=== PATIENT | female | born 1980 ===

== ENCOUNTER 2021-07-08 22:53 | Inpatient (IN) | payer MEDICAID ==
[~2021-07-08] VITALS: Ht 167.6 cm; Wt 93.8 kg
--- NOTE | 2021-07-08 23:07 | NUR ---
ELMER from [facility] for ETOH, GI bleed, AMS, and emesis. Patient is poor historian, denies any medical history, denies drug use, denies tobacco use, endorces ETOH use. EMS reports patient drinks 1/2 to 1 gallon of ETOH/day. Patient is AOx4. Sitter at bedside.
--- NOTE | 2021-07-08 23:34 | NUR ---
Patient given water. Sitter remains at bedside.
[2021-07-09] MEDS ORDERED: ONDANSETRON 2MG/ML, 2ML IVPush ONE
[2021-07-09] MEDS ORDERED: LORazepam 2 MG/ML, 1ML IVPush PRN
[2021-07-09 00:16] LABS: BASOPHILS % (AUTO) 1 % (0-1); EOSINOPHILS % (AUTO) 0 % (1-7); LYMPHOCYTES % (AUTO) 12 % (22-44); MEAN CORPUSCULAR HEMOGLOBIN 37.1 pg (27.0-34.8); MEAN CORPUSCULAR HGB CONC 33.8 g/dL (32.4-35.8); MEAN PLATELET VOLUME 8.3 fL (7.4-10.4); MONOCYTES % (AUTO) 5 % (2-9); NEUTROPHILS % (AUTO) 82 % (42-75); PLATELET COUNT 211 x10^3/uL (130-400); RED BLOOD COUNT 3.28 x10^6/uL (3.82-5.3); RED CELL DISTRIBUTION WIDTH 19.6 % (9.6-15.2)
[2021-07-09] MEDS ORDERED: LORazepam 2 MG/ML, 1ML ONE ×4 (00:33→11:04)
--- NOTE | 2021-07-09 00:35 | NUR ---
TASK RN: PT MEDICATED PER DEC, AWAITING MEDS FROM PHARM
[2021-07-09] MEDS ORDERED: ONDANSETRON 2MG/ML, 2ML ONE (00:37)
[2021-07-09] MEDS ORDERED: THIAMINE 100 MG in SODIUM CHLORIDE 0.9% 50 ML IVPB ONE (01:00)
[2021-07-09] MEDS ORDERED: OCTREOTIDE 500 MCG in SODIUM CHLORIDE 0.9% 99 ML IV PRN (01:00)
[2021-07-09] MEDS ORDERED: PANTOPRAZOLE 80 MG in SODIUM CHLORIDE 0.9% 50 ML IVPB ONE (01:00)
[2021-07-09] MEDS ORDERED: PANTOPRAZOLE 80 MG in SODIUM CHLORIDE 0.9% 100 ML IV SCH (01:00)
[2021-07-09 01:04] LABS: ANISOCYTOSIS 1+
[2021-07-09 01:05] LABS: <PLATELET ESTIMATE> ADEQUATE
[2021-07-09 01:06] LABS: <PLT MORPHOLOGY> NORMAL PLT MORPH
[2021-07-09] MEDS ORDERED: FOLIC ACID 5 MG/ML IM ONE (02:00)
[2021-07-09] MEDS ORDERED: ONDANSETRON 2MG/ML, 2ML IV PRN (02:00)
[2021-07-09] MEDS ORDERED: POTASSIUM CHLORIDE 40 MEQ in SODIUM CHLORIDE 0.9% 500 ML IV ONE (02:00)
[2021-07-09] MEDS ORDERED: LORazepam 2 MG/ML, 1ML IV PRN ×4 (02:00)
[2021-07-09] MEDS ORDERED: LACTATED RINGERS 1,000 ML IV SCH (02:00)
[2021-07-09] MEDS: DIAZEPAM 5 MG TABLET PO SCH ×2 (02:00→08:00)
[2021-07-09] MEDS ORDERED: DIAZEPAM 10 MG TABLET PO SCH (02:00)
[2021-07-09] MEDS ORDERED: PHYTONADIONE 10 MG/ML, 1ML SQ ONE (02:00)
[2021-07-09] MEDS: PANTOPRAZOLE 80 MG in SODIUM CHLORIDE 0.9% 100 ML IV SCH ×3 (02:00→20:51)
--- NOTE | 2021-07-09 02:31 | NUR ---
Patient resting on gurney, NAD at this time, denies any pain/discomfort. Sitter at bedside.
--- NOTE | 2021-07-09 03:53 | NUR ---
Patient sitting up on guALPHONSE segovia at this time, patient is calm, sitter at bedside.
[2021-07-09] MEDS ORDERED: PHYTONADIONE 10 MG/ML, 1ML ONE (04:00)
[2021-07-09] MEDS ORDERED: DIAZEPAM 5 MG TABLET ONE (04:00)
[2021-07-09] MEDS: NOREPINEPHRINE 8 MG in SODIUM CHLORIDE 0.9% 242 ML IV PRN ×2 (05:24→19:19)
--- NOTE | 2021-07-09 05:24 | NUR ---
LEVO GTT STARTED AT THIS TIME. PER ERP SET UP FOR CENTRAL LINE INSERTION
[2021-07-09] MEDS ORDERED: FOLIC ACID 1 MG TABLET PO ONE (05:30)
[2021-07-09] MEDS ORDERED: FENTANYL PF 100 MCG/2ML ONE ×2 (05:38→05:51)
[2021-07-09] MEDS ORDERED: MIDAZOLAM 1 MG/ML, 2ML ONE (05:54)
[2021-07-09] MEDS ORDERED: FENTANYL PF 100 MCG/2ML IVPush ONE ×2 (06:00→06:30)
--- NOTE | 2021-07-09 06:15 | NUR ---
DR OCONNOR AT BEDSIDE FOR CENTRAL LINE PLACEMENT. PT MEDICATED PER VERBAL ORDER WITH FENTANYL AN VERSED
[2021-07-09] MEDS ORDERED: MIDAZOLAM 1 MG/ML, 5ML IVPush ONE (06:30)
[2021-07-09] MEDS ORDERED: MIDAZOLAM 1 MG/ML, 2ML IVPush ONE (06:30)
--- NOTE | 2021-07-09 06:54 | NUR ---
PT MOVED TO ROOM 2 FOR SITTER AVAILABILITY
--- NOTE | 2021-07-09 07:02 | NUR ---
PT TRANSFERRED TO ROOM 2, PLACED ON ALL MONITORS, SITTER AT DOOR
[2021-07-09] MEDS: LACTULOSE 20 GM/30 ML UDC PO SCH ×2 (09:00→21:18)
[2021-07-09] MEDS ORDERED: MULTIVITAMINS/MINERALS TABLET PO SCH (09:00)
[2021-07-09] MEDS: LORazepam 2 MG/ML, 1ML IV PRN ×2 (09:31→11:07)
[2021-07-09] MEDS: OCTREOTIDE 500 MCG in SODIUM CHLORIDE 0.9% 99 ML IV SCH ×2 (10:57→20:51)
--- NOTE | 2021-07-09 12:30 | NUR ---
DR. MCDONALD CALLED FOR BEDSIDE ASSESSMENT. RONCHOROUS BREATH SOUNDS WITH RR IN THE 30S, BUT AGITATED. 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
--- NOTE | 2021-07-09 12:35 | NUR ---
DR. MCDONALD TO BEDSIDE-PLAN TO INTUBATE. MOVED TO TRAUMA ROOM 1
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
[2021-07-09] MEDS: PROPOFOL 100 ML IV PRN ×2 (13:04→15:58)
--- NOTE | 2021-07-09 13:30 | NUR ---
CXR AT BEDSIDE POLYSTYRENE BEAD MOLDER SUCTIONING COPIOUS AMOUNT OF BLOOD FROM MOUTH, PHARNYX AND ETT
[2021-07-09] MEDS: LACTATED RINGERS 1,000 ML IV SCH ×2 (13:44→20:50)
[2021-07-09] MEDS ORDERED: ETOMIDATE 20 MG/10 ML IVPush ONE ×2 (14:00)
[2021-07-09] MEDS ORDERED: SUCCINYLCHOLINE 20 MG/ML, 10ML IVPush ONE (14:00)
--- NOTE | 2021-07-09 14:15 | NUR ---
TRANSFFERED AT 1414
[2021-07-09] MEDS ORDERED: SODIUM BICARB 8.4%, 50ML SYRINGE IVPush ONE (15:00)
[2021-07-09] MEDS ORDERED: LACTATED RINGERS 1,000 ML IVBOLUS ONE (15:00)
[2021-07-09 15:31] LABS: AMPHETAMINE SCREEN, URINE Negative (Negative); BARBITURATE SCREEN, URINE Negative (Negative); BENZODIAZEPINE SCREEN, URINE Positive (Negative); CANNABINOID SCREEN, URINE Negative (Negative); COCAINE SCREEN, URINE Negative (Negative); METHADONE SCREEN, URINE Negative (Negative); OPIATE SCREEN, URINE Negative (Negative)
[2021-07-09 15:48] LABS: MICROSCOPIC INDICATED
[2021-07-09 15:50] LABS: ALANINE AMINOTRANSFERASE 133 U/L (12-78); ALBUMIN 1.5 g/dL (3.4-5.0); ANION GAP 28 mmol/L (5-15); CALCIUM 7.2 mg/dL (8.5-10.1); CHLORIDE 99 mmol/L (98-107)
[2021-07-09] MEDS ORDERED: SENNA/DOCUSATE TABLET NG PRN (16:00)
[2021-07-09] MEDS ORDERED: BISACODYL 10 MG SUPP PR PRN (16:00)
[2021-07-09] MEDS ORDERED: LIDOCAINE-MPF 1%, 2ML ENDO PRN (16:00)
[2021-07-09] MEDS ORDERED: GLUCAGON 1 MG IM PRN (16:00)
[2021-07-09] MEDS ORDERED: SENNA 176 MG/5 ML ORAL SOL NG PRN (16:00)
[2021-07-09] MEDS ORDERED: PHARMACY MAY ADJ FOR RENAL FX MC SCH (16:00)
[2021-07-09 16:17] LABS: ALKALINE PHOSPHATASE 293 U/L (45-117)
[2021-07-09 16:29] LABS: TOTAL PROTEIN 5.6 g/dL (6.4-8.2)
[2021-07-09 16:31] LABS: BILIRUBIN,TOTAL 16.6 mg/dL (0.2-1.0)
[2021-07-09] MEDS: AMPICILLIN/SULBACTAM 3 GM in SODIUM CHLORIDE 0.9% 100 ML IV SCH ×2 (16:38→20:52)
[2021-07-09] MEDS: AZITHROMYCIN 500 MG in SODIUM CHLORIDE 0.9% 250 ML IV SCH (17:16)
[2021-07-09] MEDS: RIFAXIMIN 550 MG TABLET PO SCH ×2 (17:16→21:24)
[2021-07-09] MEDS: MIDAZOLAM HCL 50 MG in SODIUM CHLORIDE 0.9% 40 ML IV PRN ×2 (20:51→23:56)
[2021-07-09] MEDS: FENTANYL PF 1,000 MCG in SODIUM CHLORIDE 0.9% 80 ML IV PRN (20:52)
[2021-07-10] VITALS (8 sets, daily range): BP systolic 96–114; BP diastolic 44–54
[2021-07-10] MEDS ORDERED: DIAZEPAM 5 MG TABLET PO SCH (02:00)
[2021-07-10] MEDS: AMPICILLIN/SULBACTAM 3 GM in SODIUM CHLORIDE 0.9% 100 ML IV SCH ×3 (04:01→17:53)
[2021-07-10] MEDS: NOREPINEPHRINE 8 MG in SODIUM CHLORIDE 0.9% 242 ML IV PRN ×4 (04:02→23:58)
[2021-07-10] MEDS: PANTOPRAZOLE 80 MG in SODIUM CHLORIDE 0.9% 100 ML IV SCH ×2 (04:02→16:11)
[2021-07-10] MEDS: OCTREOTIDE 500 MCG in SODIUM CHLORIDE 0.9% 99 ML IV SCH ×2 (04:03→16:11)
[2021-07-10] MEDS: LACTATED RINGERS 1,000 ML IV SCH ×3 (05:35→23:57)
[2021-07-10 06:34] LABS: BASOPHILS % (AUTO) 1 % (0-1); EOSINOPHILS % (AUTO) 1 % (1-7); LYMPHOCYTES % (AUTO) 17 % (22-44); MEAN CORPUSCULAR HEMOGLOBIN 37.7 pg (27.0-34.8); MEAN CORPUSCULAR HGB CONC 33.5 g/dL (32.4-35.8); MEAN PLATELET VOLUME 8.4 fL (7.4-10.4); MONOCYTES % (AUTO) 2 % (2-9); NEUTROPHILS % (AUTO) 79 % (42-75); PLATELET COUNT 134 x10^3/uL (130-400); RED BLOOD COUNT 2.47 x10^6/uL (3.82-5.3); RED CELL DISTRIBUTION WIDTH 20.3 % (9.6-15.2)
[2021-07-10 06:43] LABS: INTERNATIONAL NORMALIZED RATIO 3.53 (0.93-1.1); PROTHROMBIN TIME 35.6 Seconds (9.6-11.5)
[2021-07-10 07:02] LABS: ALKALINE PHOSPHATASE 264 U/L (45-117); TOTAL PROTEIN 5.2 g/dL (6.4-8.2)
[2021-07-10 07:10] LABS: BILIRUBIN,TOTAL 17.5 mg/dL (0.2-1.0)
[2021-07-10 07:11] LABS: ALANINE AMINOTRANSFERASE 188 U/L (12-78); ANION GAP 11 mmol/L (5-15); CALCIUM 7.1 mg/dL (8.5-10.1); CHLORIDE 103 mmol/L (98-107); CREATININE 1.47 mg/dL (0.55-1.02)
[2021-07-10 07:12] LABS: ALBUMIN 1.3 g/dL (3.4-5.0)
[2021-07-10 07:30] LABS: <PLATELET ESTIMATE> ADEQUATE; <PLT MORPHOLOGY> NORMAL PLT MORPH; ANISOCYTOSIS 1+; TARGET CELLS 1+
[2021-07-10] MEDS ORDERED: THIAMINE 100 MG in DEXTROSE 5% 50 ML IVPB SCH (09:30)
[2021-07-10] MEDS: THIAMINE 200 MG in DEXTROSE 5% 50 ML IVPB SCH (09:46)
[2021-07-10] MEDS: RIFAXIMIN 550 MG TABLET PO SCH ×2 (09:46→20:14)
[2021-07-10] MEDS: LACTULOSE 20 GM/30 ML UDC PO SCH ×2 (09:46→20:14)
[2021-07-10] MEDS ORDERED: MAGNESIUM SULFATE PMX 4GM/100M 100 ML IVPB ONE (10:00)
[2021-07-10] MEDS ORDERED: POTASSIUM CHLORIDE 20 MEQ PACKET NG SCH (10:00)
[2021-07-10] MEDS: POTASSIUM CHLORIDE 20 MEQ PACKET NG SCH ×2 (10:02→16:37)
[2021-07-10] MEDS ORDERED: PHYTONADIONE 10 MG in SODIUM CHLORIDE 0.9% 50 ML IV ONE (12:30)
[2021-07-10] MEDS: FENTANYL PF 1,000 MCG in SODIUM CHLORIDE 0.9% 80 ML IV PRN (13:02)
[2021-07-10] MEDS: MIDAZOLAM HCL 50 MG in SODIUM CHLORIDE 0.9% 40 ML IV PRN ×2 (14:10→22:31)
[2021-07-10] MEDS: AZITHROMYCIN 500 MG in SODIUM CHLORIDE 0.9% 250 ML IV SCH (16:46)
[2021-07-10 19:10] LABS: ALANINE AMINOTRANSFERASE 177 U/L (12-78); ALBUMIN 1.3 g/dL (3.4-5.0); ANION GAP 6 mmol/L (5-15); CALCIUM 6.9 mg/dL (8.5-10.1); CHLORIDE 108 mmol/L (98-107); CREATININE 1.33 mg/dL (0.55-1.02)
[2021-07-10 19:26] LABS: ALKALINE PHOSPHATASE 254 U/L (45-117); TOTAL PROTEIN 5.1 g/dL (6.4-8.2)
[2021-07-10 19:43] LABS: BILIRUBIN,TOTAL 17.5 mg/dL (0.2-1.0)
[2021-07-11] VITALS (11 sets, daily range): BP systolic 97–109; BP diastolic 48–66
[2021-07-11] MEDS: OCTREOTIDE 500 MCG in SODIUM CHLORIDE 0.9% 99 ML IV SCH ×3 (01:36→21:06)
[2021-07-11] MEDS: PANTOPRAZOLE 80 MG in SODIUM CHLORIDE 0.9% 100 ML IV SCH ×3 (01:36→21:06)
[2021-07-11] MEDS: NOREPINEPHRINE 8 MG in SODIUM CHLORIDE 0.9% 242 ML IV PRN ×2 (03:51→13:33)
[2021-07-11 04:36] LABS: ALBUMIN 1.3 g/dL (3.4-5.0); ANION GAP 8 mmol/L (5-15); CALCIUM 6.6 mg/dL (8.5-10.1); CHLORIDE 109 mmol/L (98-107)
[2021-07-11 04:37] LABS: D-DIMER 3.41 ug/mlFEU (0.00-0.52); INTERNATIONAL NORMALIZED RATIO 2.1 (0.93-1.1); PROTHROMBIN TIME 21.7 Seconds (9.6-11.5)
[2021-07-11 04:56] LABS: ALANINE AMINOTRANSFERASE 170 U/L (12-78); ALKALINE PHOSPHATASE 265 U/L (45-117); CREATININE 1.33 mg/dL (0.55-1.02)
[2021-07-11 04:58] LABS: BILIRUBIN,TOTAL 18.8 mg/dL (0.2-1.0)
[2021-07-11] MEDS: AMPICILLIN/SULBACTAM 3 GM in SODIUM CHLORIDE 0.9% 100 ML IV SCH ×4 (05:40→17:41)
[2021-07-11 06:16] LABS: BASOPHILS % (AUTO) 1 % (0-1); EOSINOPHILS % (AUTO) 2 % (1-7); LYMPHOCYTES % (AUTO) 12 % (22-44); MEAN CORPUSCULAR HGB CONC 33.5 g/dL (32.4-35.8); MEAN PLATELET VOLUME 8.4 fL (7.4-10.4); MONOCYTES % (AUTO) 4 % (2-9); NEUTROPHILS % (AUTO) 81 % (42-75); PLATELET COUNT 141 x10^3/uL (130-400); RED BLOOD COUNT 2.07 x10^6/uL (3.82-5.3); RED CELL DISTRIBUTION WIDTH 20.2 % (9.6-15.2)
[2021-07-11] MEDS ORDERED: ERYTHROMYCIN 250 MG in SODIUM CHLORIDE 0.9% 100 ML IV ONE (07:30)
[2021-07-11] MEDS: FENTANYL PF 1,000 MCG in SODIUM CHLORIDE 0.9% 80 ML IV PRN (07:45)
[2021-07-11] MEDS: MIDAZOLAM HCL 50 MG in SODIUM CHLORIDE 0.9% 40 ML IV PRN ×2 (07:45→19:40)
[2021-07-11] MEDS: LACTATED RINGERS 1,000 ML IV SCH (07:50)
[2021-07-11] MEDS: LACTULOSE 20 GM/30 ML UDC PO SCH (07:50)
[2021-07-11] MEDS: RIFAXIMIN 550 MG TABLET PO SCH (07:50)
[2021-07-11] MEDS: THIAMINE 200 MG in DEXTROSE 5% 50 ML IVPB SCH (12:03)
[2021-07-11] MEDS ORDERED: SODIUM CHLORIDE 0.9% 250 ML IV SCH ×2 (12:30→13:30)
[2021-07-11] MEDS ORDERED: POTASSIUM CHLORIDE 40 MEQ in SODIUM CHLORIDE 0.9% 500 ML IV ONE (14:00)
[2021-07-11] MEDS: NOREPINEPHRINE 32 MG in SODIUM CHLORIDE 0.9% 218 ML IV PRN (17:45)
[2021-07-11 18:38] LABS: ALANINE AMINOTRANSFERASE 143 U/L (12-78); ALBUMIN 1.4 g/dL (3.4-5.0); ANION GAP 8 mmol/L (5-15); CHLORIDE 113 mmol/L (98-107); CREATININE 1.13 mg/dL (0.55-1.02)
[2021-07-11 18:45] LABS: ALKALINE PHOSPHATASE 240 U/L (45-117); TOTAL PROTEIN 5.1 g/dL (6.4-8.2)
[2021-07-12] MEDS: AMPICILLIN/SULBACTAM 3 GM in SODIUM CHLORIDE 0.9% 100 ML IV SCH ×5 (00:33→23:48)
[2021-07-12] MEDS: MIDAZOLAM HCL 50 MG in SODIUM CHLORIDE 0.9% 40 ML IV PRN ×2 (02:27→13:38)
[2021-07-12] MEDS: FENTANYL PF 1,000 MCG in SODIUM CHLORIDE 0.9% 80 ML IV PRN ×2 (02:27→22:17)
[2021-07-12 02:50] LABS: BASOPHILS % (AUTO) 2 % (0-1); EOSINOPHILS % (AUTO) 3 % (1-7); LYMPHOCYTES % (AUTO) 14 % (22-44); MEAN CORPUSCULAR HEMOGLOBIN 34.8 pg (27.0-34.8); MEAN CORPUSCULAR HGB CONC 34.2 g/dL (32.4-35.8); MEAN PLATELET VOLUME 7.6 fL (7.4-10.4); MONOCYTES % (AUTO) 5 % (2-9); NEUTROPHILS % (AUTO) 77 % (42-75); PLATELET COUNT 125 x10^3/uL (130-400); RED CELL DISTRIBUTION WIDTH 25.8 % (9.6-15.2)
[2021-07-12 03:02] LABS: ALANINE AMINOTRANSFERASE 141 U/L (12-78); ALBUMIN 1.4 g/dL (3.4-5.0); ANION GAP 6 mmol/L (5-15); CALCIUM 6.8 mg/dL (8.5-10.1); CHLORIDE 114 mmol/L (98-107); CREATININE 1.04 mg/dL (0.55-1.02)
[2021-07-12] MEDS ORDERED: PROPOFOL 10 MG/ML, 100ML IV ONE (03:04)
[2021-07-12] MEDS ORDERED: SUCCINYLCHOLINE 20 MG/ML, 10ML ONE (03:04)
[2021-07-12] MEDS ORDERED: ETOMIDATE 20 MG/10 ML ONE (03:04)
[2021-07-12 03:11] LABS: ALKALINE PHOSPHATASE 253 U/L (45-117); FREE T4 (FREE THYROXINE) 1.37 ng/dL (0.76-1.46); TOTAL PROTEIN 5.1 g/dL (6.4-8.2)
[2021-07-12 03:14] LABS: TRIGLYCERIDES 316 mg/dL (50-200)
[2021-07-12 03:16] LABS: BILIRUBIN,TOTAL 19.7 mg/dL (0.2-1.0)
[2021-07-12 03:36] LABS: INTERNATIONAL NORMALIZED RATIO 1.86 (0.93-1.1); PROTHROMBIN TIME 19.3 Seconds (9.6-11.5)
[2021-07-12 03:43] LABS: ANISOCYTOSIS 1+
[2021-07-12 03:45] LABS: <PLATELET ESTIMATE> DECREASED; <PLT MORPHOLOGY> NORMAL PLT MORPH; TARGET CELLS 1+
[2021-07-12] MEDS: PANTOPRAZOLE 80 MG in SODIUM CHLORIDE 0.9% 100 ML IV SCH ×2 (05:24→15:56)
[2021-07-12] MEDS: OCTREOTIDE 500 MCG in SODIUM CHLORIDE 0.9% 99 ML IV SCH ×2 (05:24→15:56)
[2021-07-12] MEDS: THIAMINE 200 MG in DEXTROSE 5% 50 ML IVPB SCH (08:50)
[2021-07-12] MEDS: NOREPINEPHRINE 32 MG in SODIUM CHLORIDE 0.9% 218 ML IV PRN ×2 (08:53→19:50)
[2021-07-12] MEDS ORDERED: VASOPRESSIN 20 UNIT in SODIUM CHLORIDE 0.9% 99 ML IV PRN ×2 (16:30→18:00)
[2021-07-12 17:46] LABS: ALBUMIN 1.4 g/dL (3.4-5.0); ANION GAP 6 mmol/L (5-15); CHLORIDE 117 mmol/L (98-107)
[2021-07-12 17:55] LABS: ALANINE AMINOTRANSFERASE 127 U/L (12-78); ALKALINE PHOSPHATASE 292 U/L (45-117); CREATININE 1.18 mg/dL (0.55-1.02); TOTAL PROTEIN 5.4 g/dL (6.4-8.2)
[2021-07-12] MEDS ORDERED: PHENYLEPHRINE 50 MG in SODIUM CHLORIDE 0.9% 245 ML IV PRN (18:00)
[2021-07-12 18:01] LABS: BILIRUBIN,TOTAL 19.7 mg/dL (0.2-1.0)
[2021-07-13] MEDS: OCTREOTIDE 500 MCG in SODIUM CHLORIDE 0.9% 99 ML IV SCH (02:55)
[2021-07-13] MEDS: MIDAZOLAM HCL 50 MG in SODIUM CHLORIDE 0.9% 40 ML IV PRN (02:55)
[2021-07-13 04:16] LABS: ANION GAP 7 mmol/L (5-15); CALCIUM 7.1 mg/dL (8.5-10.1); CHLORIDE 117 mmol/L (98-107); CREATININE 1.19 mg/dL (0.55-1.02)
[2021-07-13 04:17] LABS: BASOPHILS % (AUTO) 1 % (0-1); EOSINOPHILS % (AUTO) 1 % (1-7); LYMPHOCYTES % (AUTO) 13 % (22-44); MEAN CORPUSCULAR HEMOGLOBIN 34.8 pg (27.0-34.8); MEAN CORPUSCULAR HGB CONC 33.5 g/dL (32.4-35.8); MEAN PLATELET VOLUME 7.8 fL (7.4-10.4); MONOCYTES % (AUTO) 9 % (2-9); NEUTROPHILS % (AUTO) 75 % (42-75); PLATELET COUNT 144 x10^3/uL (130-400); RED BLOOD COUNT 2.67 x10^6/uL (3.82-5.3)
[2021-07-13 04:21] LABS: INTERNATIONAL NORMALIZED RATIO 1.97 (0.93-1.1); PROTHROMBIN TIME 20.4 Seconds (9.6-11.5)
[2021-07-13] MEDS: PANTOPRAZOLE 80 MG in SODIUM CHLORIDE 0.9% 100 ML IV SCH (04:25)
[2021-07-13] MEDS: AMPICILLIN/SULBACTAM 3 GM in SODIUM CHLORIDE 0.9% 100 ML IV SCH (05:46)
[2021-07-13 06:42] LABS: MICROSCOPIC INDICATED
[2021-07-13] MEDS: THIAMINE 200 MG in DEXTROSE 5% 50 ML IVPB SCH (07:57)
[2021-07-13] MEDS: NOREPINEPHRINE 32 MG in SODIUM CHLORIDE 0.9% 218 ML IV PRN (07:57)
[2021-07-13 14:43] LABS: MICROSCOPIC INDICATED
[2021-07-13] MEDS ORDERED: MORPHINE SULFATE 4 MG/ML, 1ML IVPush PRN (15:00)
[2021-07-13] MEDS ORDERED: HEPARIN 5,000 UNITS/ML, 1ML ONE (15:15)
[2021-07-13] MEDS ORDERED: ATROPINE OPHTH SOLN 1%, 5ML BC PRN (15:30)
[2021-07-13] MEDS ORDERED: HEPARIN 5,000 UNITS/ML, 1ML IVPush SCH (17:00)
[2021-07-13] MEDS ORDERED: LORazepam 2 MG/ML, 1ML IVPush ONE (17:00)
[2021-07-13] MEDS: LORazepam 2 MG/ML, 1ML IVPush PRN ×6 (17:18→18:30)
[2021-07-13] MEDS: morphine SULFATE 10 MG/ML, 1ML IVPush PRN ×4 (17:18→18:30)
[2021-07-13] MEDS ORDERED: SCOPOLAMINE 1MG PATCH TD PRN (18:30)
[2021-07-13] MEDS ORDERED: LORazepam 2 MG/ML, 1ML IVPush SCH ×2 (18:30)
[2021-07-13] MEDS ORDERED: MORPHINE 30MG/30ML PCA.SYR IV PRN (18:30)
[2021-07-13] MEDS ORDERED: LORazepam 2 MG/ML, 1ML ONE (19:04)
== END 2021-07-13 20:39 | DRG 130 ==
LOC: ED 07-09 00:53 → EDIP 07-09 01:28 → CCU 07-09 14:20
PROVIDERS: ADMIT Family Medicine; ATTEND Internal Medicine
PROC: 5A1955Z Respiratory Ventilation, Greater than 96 Consecutive Hours (ICD-10-PCS; principal; 2021-07-09)
PROC: 0BH17EZ Insertion of Endotracheal Airway into Trachea, Via Natural or Artificial Opening (ICD-10-PCS; 2021-07-09)
PROC: 0T9B30Z Drainage of Bladder with Drainage Device, Percutaneous Approach (ICD-10-PCS; 2021-07-09)
PROC: 30233K1 Transfusion of Nonautologous Frozen Plasma into Peripheral Vein, Percutaneous Approach (ICD-10-PCS; 2021-07-10)
PROC: 0DJ08ZZ Inspection of Upper Intestinal Tract, Via Natural or Artificial Opening Endoscopic (ICD-10-PCS; 2021-07-11)
PROC: 30233N1 Transfusion of Nonautologous Red Blood Cells into Peripheral Vein, Percutaneous Approach (ICD-10-PCS; 2021-07-11)
PROC: 02HV33Z Insertion of Infusion Device into Superior Vena Cava, Percutaneous Approach (ICD-10-PCS; 2021-07-11)
PROC: B548ZZA Ultrasonography of Superior Vena Cava, Guidance (ICD-10-PCS; 2021-07-11)
PROC: 03HY32Z Insertion of Monitoring Device into Upper Artery, Percutaneous Approach (ICD-10-PCS; 2021-07-12)
PROC: 4A133B1 Monitoring of Arterial Pressure, Peripheral, Percutaneous Approach (ICD-10-PCS; 2021-07-12)
PROC: 4A133J1 Monitoring of Arterial Pulse, Peripheral, Percutaneous Approach (ICD-10-PCS; 2021-07-12)
DX: J96.01 Acute respiratory failure with hypoxia (principal); G93.41 Metabolic encephalopathy; J15.211 Pneumonia due to Methicillin susceptible Staphylococcus aureus; J15.0 Pneumonia due to Klebsiella pneumoniae; F10.231 Alcohol dependence with withdrawal delirium; R57.9 Shock, unspecified; K70.40 Alcoholic hepatic failure without coma; D68.9 Coagulation defect, unspecified; E87.2 Acidosis; K76.6 Portal hypertension; K70.10 Alcoholic hepatitis without ascites; D62 Acute posthemorrhagic anemia; E83.51 Hypocalcemia; E87.6 Hypokalemia; Z66 Do not resuscitate; Z20.822 Contact with and (suspected) exposure to COVID-19; K76.0 Fatty (change of) liver, not elsewhere classified; K70.30 Alcoholic cirrhosis of liver without ascites; K31.89 Other diseases of stomach and duodenum; K21.9 Gastro-esophageal reflux disease without esophagitis; Z51.5 Encounter for palliative care; D75.89 Other specified diseases of blood and blood-forming organs; K25.4 Chronic or unspecified gastric ulcer with hemorrhage; Z88.8 Allergy status to other drugs, medicaments and biological substances; Z79.899 Other long term (current) drug therapy
CPT/HCPCS: 36415; 36600; 71045; 74018; 76700; 80048; 80053; 80074; 80299; 80307; 80320; 81001; 82140; 82330; 82607; 82728; 82803; 83605; 83735; 84100; 84145; 84439; 84443; 84478; 85014; 85018; 85025; 85379; 85384; 85610; 86850; 86900; 86923; 87040; 87070; 87077; 87081; 87086; 87186; 87205; 87635; 94002; 94003; 96374; 96375; 99285; G0378; J0295; J0456; J1364; J2250; J2354; J2405; J2704; J3010; J3411; J3430; J3480; U0005; C9113; G0480; J0330; J2060; J2270; J3475; J7040; J7050; J7120; P9016; P9017; U0003